=== PATIENT | female | born 1955 | race Caucasian/White ===

== ENCOUNTER → 2016-11-07 | Day surgery (SDC) | payer BC ==
[~2016-11-07] MED LIST: Lactated Ringers 1,000 ML IV SCH; Propofol 200 MG/20 ML SDV IV ONE
[2016-11-07 10:02] VITALS: BP 115/65
--- NOTE | 2016-11-07 12:52 | OR ---
DATE OF OPERATION: 11/07/2016 PREOPERATIVE DIAGNOSIS: WEIGHT LOSS, NAUSEA. POSTOPERATIVE DIAGNOSIS: WEIGHT LOSS, NAUSEA. SURGEON: Isidoro Christianson MD PROCEDURE: EGD WITH BIOPSIES X3, BRAULIO. ANESTHESIA: SIZE MARKER due to chronic GERD and COPD. COMPLICATIONS: None. SPECIMEN: 1. Duodenal biopsy x1. 2. Antral biopsy x2. 3. Antral BRAULIO. FINDINGS: 1. Full-length EGD. 2. Mild chronic antral gastritis without ulceration or erosion. 3. Minimal duodenitis. RECOMMENDATIONS: Medical followup with Dr. Mishra. INDICATIONS: The patient has apparently been having some issues with weight loss and has been having some nausea. Dr. Mishra sent her for EGD. DESCRIPTION OF PROCEDURE: The patient was prepped and draped, placed in the left lateral decubitus position. A lubricated Olympus gastroscope was inserted over a bit and easily intubated in the esophagus. Esophageal lining was benign in its entire course. The Z-line was crisp and sharp at 39 cm. There was no hernia, no distal esophagitis, stricturing, ulceration, or Cormier changes. No signs of any reflux seen. The scope was advanced into the stomach through the pylorus and into the second portion of duodenum. This in the duodenal bulb were for the most part benign. The duodenal bulb had an atrophic look to it. We did a biopsy of that, but no other lesions were seen or inflammatory change. The scope was brought back into the stomach and retroflexed. The upper fundus and cardia were completely unremarkable. Upon straightening, the rest of the fundus appeared benign. The patient does have what appears to be a chronic and mild gastritis of the antrum without any erosion or ulceration. Two biopsies were taken along with a BRAULIO test. Air was then suctioned. Scope was removed without complication. ELISSA/PATY /[id number]
== END ==
LOC: CC.SDS 08:42
PROVIDERS: ATTEND Family Medicine
DX: K29.50 Unspecified chronic gastritis without bleeding (principal); Z88.8 Allergy status to other drugs, medicaments and biological substances; Z79.899 Other long term (current) drug therapy
CPT/HCPCS: 43239; 87081; J2704; J7120